=== PATIENT | female | born 1985 | race Caucasian/White ===

== ENCOUNTER 2020-12-06 17:09 | Inpatient (IN) | payer MEDICAID ==
[~2020-12-06] VITALS: Ht 157.5 cm; Wt 49.0 kg
[~2020-12-06 17:09] MED LIST: ATIVAN1 MG PO; CLEOCIN HCL150 MG PO; HUMALOG100 UNIT/1 SUBQ; LACTULOSE20 GM/30 M PO; LANTUS100 UNIT/M SUBQ; LASIX 20 MG TAB20 MG PO; LEVAQUIN 500 M500 M1 PO; LOPRESSOR25 PO; NEURONTIN600 MG PO; OXYCODONE HCL 55 MG PO; PERCOCET PO; PHENERGAN 25 MG25 M1 PO; PRILOSEC OTC20 MG PO; REGLAN 10 MG TA10 MG PO; SEROQUEL 50 MG50 MG PO; TRAZODONE HCL100 MG PO; ZENPEP DR 15,01 EACH PO; ZOFRAN ODT4 MG DISSOLVE
[2020-12-06 17:11] VITALS: BP 97/67
[2020-12-06 18:30] LABS: ABSOLUTE EOSINOPHILS 0.1 thou/uL (0.0-0.7); ABSOLUTE LYMPHOCYTES 2.7 thou/uL (0.8-5.3); ABSOLUTE MONOCYTES 0.7 thou/uL (0.0-1.2); BASOPHILS 0.6 %; HEMATOCRIT 39.4 % (37.0-47.0); HEMOGLOBIN 12.9 gm/dL (12.0-15.0); LYMPHOCYTES 32.2 %; MCH 29.1 pg (26.0-34.0); MCHC 32.7 g/dL (28.0-37.0); MONOCYTES 7.8 %; MPV 9.2 fl. (7.2-11.1); NUCLEATED RBCS 0 /100WBC; PLATELET COUNT* 191 thou/uL (150-400); POLYS 58.4 %; RBC 4.43 mil/uL (4.20-5.00); RDW-CV 14.6 % (10.5-14.5); WBC 8.5 thou/uL (4.0-11.0)
[2020-12-06 18:31] LABS: URINE BILIRUBIN NEGATIVE (Negative); URINE BLOOD TRACE (Negative); URINE CLARITY SL CLOUDY; URINE COLOR YELLOW; URINE GLUCOSE-RANDOM 3+ (Negative); URINE KETONES NEGATIVE (Negative); URINE LEUKOCYTES-REFLEX NEGATIVE (Negative); URINE PROTEIN NEGATIVE (Negative); URINE SPECIFIC GRAVITY <= 1.005 (1.005-1.030); URINE UROBILINOGEN 0.2 E.U./dl (0.2-1.0)
[2020-12-06 18:32] LABS: URINE NITRITE-REFLEX POSITIVE (Negative)
[2020-12-06 18:42] LABS: CALCIUM 7.8 mg/dL (8.5-10.1); CREATININE 0.9 mg/dL (0.6-1.3); POTASSIUM 3.8 mmol/L (3.5-5.1)
[2020-12-06 18:48] LABS: TOTAL BILIRUBIN 0.5 mg/dL (<0.1-1.0); TOTAL PROTEIN 6.7 g/dL (6.4-8.2)
[2020-12-06 18:53] LABS: BACTERIA-REFLEX >30 Many /HPF (None Seen); MUCUS None Seen strn/LPF (None Seen); SQUAMOUS >10 Many /LPF (0-3); URINE WBC-REFLEX 6-15 Few /HPF (0-5); WBC CLUMPS Few (None Seen)
[2020-12-06 18:54] LABS: CRYSTALS None Seen /LPF (None Seen); URINE RBC 0-2 Rare /HPF (0-2)
[2020-12-06 22:27] LABS: AMP/METHAMP Negative (Negative); BARBITURATES Negative (Negative); BENZODIAZEPINES Negative (Negative); COCAINE Negative (Negative); METHADONE Negative (Negative); OPIATES Negative (Negative); PCP Negative (Negative); THC Negative (Negative)
[2020-12-07 01:00] VITALS: BP 98/64
[2020-12-07 01:07] VITALS: BP 102/64
[2020-12-07 08:21] VITALS: BP 94/57
[2020-12-07 12:00] VITALS: BP 97/66
[2020-12-07 16:00] VITALS: BP 101/70
[2020-12-07 20:00] VITALS: BP 110/82
[2020-12-08 01:25] VITALS: BP 122/62
[2020-12-08 06:14] VITALS: BP 124/64
[2020-12-08 08:45] VITALS: BP 101/71
[2020-12-08 16:00] VITALS: BP 125/88
[2020-12-08 20:00] VITALS: BP 109/73
[2020-12-09 01:08] VITALS: BP 10/74
[2020-12-09 08:51] VITALS: BP 94/68
[2020-12-09 12:00] VITALS: BP 101/62
[2020-12-09 16:00] VITALS: BP 98/62
[2020-12-09 20:00] VITALS: BP 133/64
[2020-12-10 05:25] VITALS: BP 131/76
[2020-12-10 08:00] VITALS: BP 95/65
[2020-12-10 11:30] VITALS: BP 97/60
[2020-12-10 16:00] VITALS: BP 106/65
[2020-12-10 20:59] VITALS: BP 101/59
[2020-12-11] VITALS (7 sets, daily range): BP systolic 86–116; BP diastolic 54–77
[2020-12-11] MEDS ORDERED: ZENPEP DR 5,001 EAC1 PO (08:12)
[2020-12-11] MEDS ORDERED: HYDROCODON-ACE1 EAC7 PO (08:12)
[2020-12-11] MEDS ORDERED: ONDANSETRON ODT4 MG PO (08:12)
[2020-12-11] MEDS ORDERED: HUMALOG100 UNIT/1 SUBQ (08:12)
[2020-12-11] MEDS ORDERED: LANTUS SUBQ (08:12)
[2020-12-11] MEDS ORDERED: AMOX TR-K CLV1 EAC3 PO (08:12)
[2020-12-11] MEDS ORDERED: LACTULOSE PO (08:13)
== END 2020-12-11 18:05 | disposition home or self-care (01) | DRG 438 ==
LOC: M.ERS 17:09 → M.2W 21:20 → M.TBA-ER 21:20 → M.2W 12-07 01:10
PROVIDERS: Physician Assistant; ADMIT Internal Medicine; ATTEND Internal Medicine
DX: K85.90 Acute pancreatitis without necrosis or infection, unspecified (principal); E43 Unspecified severe protein-calorie malnutrition; K56.7 Ileus, unspecified; K31.0 Acute dilatation of stomach; N30.01 Acute cystitis with hematuria; B17.9 Acute viral hepatitis, unspecified; E87.1 Hypo-osmolality and hyponatremia; Z16.12 Extended spectrum beta lactamase (ESBL) resistance; Z68.1 Body mass index [BMI] 19.9 or less, adult; K86.1 Other chronic pancreatitis; K74.60 Unspecified cirrhosis of liver; F17.210 Nicotine dependence, cigarettes, uncomplicated; K62.89 Other specified diseases of anus and rectum; E10.65 Type 1 diabetes mellitus with hyperglycemia; B96.20 Unspecified Escherichia coli [E. coli] as the cause of diseases classified elsewhere; Z20.822 Contact with and (suspected) exposure to COVID-19; Z90.49 Acquired absence of other specified parts of digestive tract; Z79.899 Other long term (current) drug therapy; Z79.4 Long term (current) use of insulin; Z88.8 Allergy status to other drugs, medicaments and biological substances; Z88.5 Allergy status to narcotic agent; Z91.19 Patient's noncompliance with other medical treatment and regimen

== ENCOUNTER 2021-01-03 11:23 | Emergency (ER) | payer MEDICAID ==
[~2021-01-03] VITALS: Ht 157.5 cm; Wt 47.6 kg
[~2021-01-03 11:23] MED LIST changes: +AMOX TR-K CLV1 EAC3 PO; +HYDROCODON-ACE1 EAC7 PO; +LACTULOSE PO; +LANTUS SUBQ; +ONDANSETRON ODT4 MG PO; +ZENPEP DR 5,001 EAC1 PO
[2021-01-03 12:30] VITALS: BP 106/62
[2021-01-03 12:42] LABS: URINE BILIRUBIN NEGATIVE (Negative); URINE BLOOD 1+ (Negative); URINE CLARITY CLEAR; URINE COLOR YELLOW; URINE GLUCOSE-RANDOM 3+ (Negative); URINE KETONES NEGATIVE (Negative); URINE LEUKOCYTES-REFLEX 1+ (Negative); URINE PROTEIN NEGATIVE (Negative); URINE UROBILINOGEN 0.2 E.U./dl (0.2-1.0)
[2021-01-03 12:43] LABS: URINE NITRITE-REFLEX POSITIVE (Negative)
[2021-01-03 12:49] LABS: AMP/METHAMP POSITIVE (Negative); BACTERIA-REFLEX >30 Many /HPF (None Seen); BARBITURATES Negative (Negative); BENZODIAZEPINES Negative (Negative); CASTS None Seen /LPF (None Seen); COCAINE Negative (Negative); CRYSTALS None Seen /LPF (None Seen); METHADONE Negative (Negative); OPIATES Negative (Negative); PCP Negative (Negative); SQUAMOUS 0-3 Few /LPF (0-3); THC Negative (Negative); URINE RBC 0-2 Rare /HPF (0-2); URINE WBC-REFLEX 6-15 Few /HPF (0-5)
--- NOTE | 2021-01-03 16:24 | EKG ---
[place] [address] ELECTROCARDIOGRAM REPORT Name: MANJU BARRIOS Room: [facility]#: [id number] Admission: 01/03/21 Attend Phys: Discharge: 01/03/21 Date of : 81 Date of Service: 01/03/21 1139 Report #: [id number] THIS REPORT FOR: //name// 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 01/03/21 1624 1139 1139 Jesu Queen MD, FACC /EPI
== END 2021-01-03 12:30 | disposition left against medical advice (07) ==
LOC: M.ERS 11:23
PROVIDERS: Emergency Medicine Emergency Medical Services
DX: R10.84 Generalized abdominal pain (principal); E11.9 Type 2 diabetes mellitus without complications; F17.210 Nicotine dependence, cigarettes, uncomplicated; Z88.1 Allergy status to other antibiotic agents; Z88.5 Allergy status to narcotic agent; Z79.899 Other long term (current) drug therapy; Z79.4 Long term (current) use of insulin; Z90.49 Acquired absence of other specified parts of digestive tract

== ENCOUNTER 2021-01-03 15:04 | Inpatient (IN) | payer MEDICAID ==
[~2021-01-03] VITALS: Ht 172.7 cm; Wt 44.9 kg
[2021-01-03 15:11] VITALS: BP 100/54
[2021-01-03 15:40] LABS: URINE BILIRUBIN NEGATIVE (Negative); URINE BLOOD 1+ (Negative); URINE CLARITY SL CLOUDY; URINE COLOR YELLOW; URINE GLUCOSE-RANDOM 3+ (Negative); URINE KETONES NEGATIVE (Negative); URINE LEUKOCYTES-REFLEX 1+ (Negative); URINE PROTEIN TRACE (Negative); URINE SPECIFIC GRAVITY 1.015 (1.005-1.030); URINE UROBILINOGEN 0.2 E.U./dl (0.2-1.0)
[2021-01-03 15:42] LABS: URINE NITRITE-REFLEX POSITIVE (Negative)
[2021-01-03 15:58] LABS: MUCUS None Seen strn/LPF (None Seen); SQUAMOUS 0-3 Few /LPF (0-3)
[2021-01-03 15:59] LABS: URINE RBC 0-2 Rare /HPF (0-2); URINE WBC-REFLEX >25 Many /HPF (0-5)
[2021-01-03 16:00] LABS: BACTERIA-REFLEX >30 Many /HPF (None Seen); CASTS None Seen /LPF (None Seen); CRYSTALS None Seen /LPF (None Seen)
[2021-01-03 16:03] LABS: HEMATOCRIT 29.6 % (37.0-47.0); HEMOGLOBIN 9.1 gm/dL (12.0-15.0); MCH 27.7 pg (26.0-34.0); MCHC 30.9 g/dL (28.0-37.0); MCV 89.8 fL (80.0-100.0); MPV 8.2 fl. (7.2-11.1); NUCLEATED RBCS 0 /100WBC; PLATELET COUNT* 213 thou/uL (150-400); RDW-CV 14.5 % (10.5-14.5); WBC 15.1 thou/uL (4.0-11.0)
[2021-01-03 16:12] LABS: AMP/METHAMP POSITIVE (Negative); BARBITURATES Negative (Negative); BENZODIAZEPINES Negative (Negative); COCAINE Negative (Negative); METHADONE Negative (Negative); OPIATES Negative (Negative); PCP Negative (Negative); THC Negative (Negative)
[2021-01-03 16:13] LABS: CALCIUM 7.4 mg/dL (8.5-10.1); POTASSIUM 3.9 mmol/L (3.5-5.1); TOTAL BILIRUBIN 0.4 mg/dL (<0.1-1.0); TOTAL PROTEIN 5.5 g/dL (6.4-8.2)
--- NOTE | 2021-01-03 16:28 | EKG ---
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1985 Requested By: Siva Shine Order Number: [id number] Reading MD: Jesu Queen Measurements Intervals [place] Rate: 95 P: 55 ID: 151 QRS: -63 QRSD: 84 T: 80 QT: 377 QTc: 474 Interpretive Statements Sinus rhythm Left anterior fascicular block Anteroseptal infarct, age indeterminate possible Baseline wander in lead(s) V5 Compared to ECG 01/03/2021 11:39:46 Left anterior fascicular block persists Sinus tachycardia no longer present Electronically Signed On 01-03-2021 16:28:02 CDT by Jesu Queen [email or web address] <ELECTRONICALLY SIGNED> By: Jesu Queen MD, FAC 01/03/21 1628 1508 1508 Jesu Queen MD, FAC /EPI
[2021-01-03 16:34] LABS: ABSOLUTE LYMPHOCYTES 1.4 thou/uL (0.8-5.3); ABSOLUTE MONOCYTES 0.6 thou/uL (0.0-1.2); ABSOLUTE NEUTROPHILS 13.1 thou/uL (1.6-8.1)
[2021-01-03 16:36] LABS: ANISOCYTOSIS Occasional; PLATELET ESTIMATE ADEQUATE; POLYCHROMASIA Occasional
[2021-01-03 22:58] VITALS: BP 104/70
[2021-01-04 01:05] VITALS: BP 109/52
[2021-01-04 08:15] VITALS: BP 91/60
[2021-01-04 12:01] VITALS: BP 100/63
[2021-01-04 16:09] VITALS: BP 94/59
[2021-01-04 16:19] LABS: CALCIUM 7.4 mg/dL (8.5-10.1); CREATININE 0.8 mg/dL (0.6-1.3); POTASSIUM 3.5 mmol/L (3.5-5.1)
[2021-01-04 16:22] LABS: MAGNESIUM 1.7 mg/dL (1.8-2.4); PHOSPHORUS* 2.5 mg/dL (2.5-4.9)
[2021-01-04 20:00] VITALS: BP 98/62
[2021-01-05 01:56] VITALS: BP 100/72
[2021-01-05 04:17] VITALS: BP 102/79
[2021-01-05 09:00] VITALS: BP 96/56
[2021-01-05 12:56] VITALS: BP 97/62
[2021-01-05 15:28] LABS: ABSOLUTE EOSINOPHILS 0.1 thou/uL (0.0-0.7); ABSOLUTE LYMPHOCYTES 1.7 thou/uL (0.8-5.3); ABSOLUTE MONOCYTES 0.6 thou/uL (0.0-1.2); ABSOLUTE NEUTROPHILS 5.4 thou/uL (1.6-8.1); BASOPHILS 0.4 %; EOSINOPHILS 1.6 %; HEMATOCRIT 31.2 % (37.0-47.0); HEMOGLOBIN 9.7 gm/dL (12.0-15.0); LYMPHOCYTES 21.4 %; MCH 27.6 pg (26.0-34.0); MCHC 31.2 g/dL (28.0-37.0); MCV 88.5 fL (80.0-100.0); MONOCYTES 8.2 %; MPV 8.4 fl. (7.2-11.1); NUCLEATED RBCS 0 /100WBC; PLATELET COUNT* 187 thou/uL (150-400); POLYS 68.4 %; RBC 3.52 mil/uL (4.20-5.00); RDW-CV 14.6 % (10.5-14.5); WBC 7.9 thou/uL (4.0-11.0)
[2021-01-05 15:30] LABS: AMYLASE 13 U/L (25-115); LIPASE 52 U/L (73-393)
[2021-01-05 16:05] VITALS: BP 101/73
[2021-01-05 20:50] VITALS: BP 104/70
[2021-01-06] VITALS: BP 93/55
[2021-01-06 05:03] VITALS: BP 105/64
[2021-01-06 09:00] VITALS: BP 152/89
[2021-01-06 11:30] VITALS: BP 100/72
[2021-01-06 12:33] LABS: ALBUMIN 2.1 g/dL (3.4-5.0); CALCIUM 8.1 mg/dL (8.5-10.1); CREATININE 0.6 mg/dL (0.6-1.3); POTASSIUM 4.1 mmol/L (3.5-5.1); TOTAL BILIRUBIN 0.2 mg/dL (<0.1-1.0); TOTAL PROTEIN 5.5 g/dL (6.4-8.2)
[2021-01-06 16:02] VITALS: BP 119/80
[2021-01-06 21:00] VITALS: BP 108/70
[2021-01-07] VITALS (7 sets, daily range): BP systolic 94–104; BP diastolic 68–74
== END 2021-01-07 16:19 | disposition home or self-care (01) | DRG 690 ==
LOC: M.ERS 15:04 → M.TBA-ER 19:57 → M.2W 19:57
PROVIDERS: Internal Medicine; Physician Assistant; ADMIT Internal Medicine; ATTEND Internal Medicine
DX: N39.0 Urinary tract infection, site not specified (principal); G93.40 Encephalopathy, unspecified; F19.239 Other psychoactive substance dependence with withdrawal, unspecified; K86.1 Other chronic pancreatitis; R18.8 Other ascites; B96.89 Other specified bacterial agents as the cause of diseases classified elsewhere; R73.9 Hyperglycemia, unspecified; F41.9 Anxiety disorder, unspecified; K74.60 Unspecified cirrhosis of liver; F20.9 Schizophrenia, unspecified; Z88.8 Allergy status to other drugs, medicaments and biological substances; Z79.899 Other long term (current) drug therapy; Z90.49 Acquired absence of other specified parts of digestive tract; Z20.822 Contact with and (suspected) exposure to COVID-19

== ENCOUNTER 2021-01-16 12:45 | Emergency (ER) | payer MEDICAID ==
[~2021-01-16] VITALS: Ht 154.9 cm; Wt 42.6 kg
[2021-01-16 13:10] LABS: BE -0.7 mmol/L (-2 to +3); PCO2 VENOUS 36.3 mmHg (41.0-51.0)
[2021-01-16 13:11] LABS: HEMATOCRIT 30.8 % (37.0-47.0); HEMOGLOBIN 9.6 gm/dL (12.0-15.0); MCH 27.7 pg (26.0-34.0); MCHC 31.1 g/dL (28.0-37.0); MCV 89.1 fL (80.0-100.0); MPV 8.2 fl. (7.2-11.1); NUCLEATED RBCS 0 /100WBC; PLATELET COUNT* 216 thou/uL (150-400); RBC 3.45 mil/uL (4.20-5.00); RDW-CV 14.5 % (10.5-14.5); WBC 14.8 thou/uL (4.0-11.0)
[2021-01-16 13:24] LABS: CALCIUM 7.6 mg/dL (8.5-10.1); CREATININE 1.1 mg/dL (0.6-1.3)
[2021-01-16 13:26] LABS: ALBUMIN 2.2 g/dL (3.4-5.0); TOTAL BILIRUBIN 0.7 mg/dL (<0.1-1.0)
[2021-01-16 13:49] LABS: ABSOLUTE EOSINOPHILS 0.1 thou/uL (0.0-0.7); ABSOLUTE LYMPHOCYTES 0.7 thou/uL (0.8-5.3); ABSOLUTE MONOCYTES 1.5 thou/uL (0.0-1.2); ABSOLUTE NEUTROPHILS 12.4 thou/uL (1.6-8.1); PLATELET ESTIMATE ADEQUATE
[2021-01-16 17:35] VITALS: BP 126/75
== END 2021-01-16 17:35 | disposition home or self-care (01) ==
LOC: M.ERS 12:45
PROVIDERS: Family Medicine
DX: E11.9 Type 2 diabetes mellitus without complications (principal); F17.210 Nicotine dependence, cigarettes, uncomplicated; Z88.1 Allergy status to other antibiotic agents; Z88.5 Allergy status to narcotic agent; Z88.8 Allergy status to other drugs, medicaments and biological substances; Z79.4 Long term (current) use of insulin; Z79.899 Other long term (current) drug therapy; Z90.49 Acquired absence of other specified parts of digestive tract